=== PATIENT | female | born 1960 | race Caucasian/White ===

== ENCOUNTER 2016-08-22 10:52 | Emergency (ER) | payer OTHER ==
[~2016-08-22] VITALS: Wt 81.0 kg
[~2016-08-22 10:52] MED LIST: ASPI-664 PO; ATOR20TA38 PO; CEPH500C PO; CLOP75TA27 PO; FURO20TA3 PO; GEMF600T60 PO; INSU100C SC; LANT3I SC; LEVO75TA5 PO; NOL20 PO; SPIR25TA PO; TRAZ50TA18 PO; WARF6TAB35 PO
--- NOTE | 2016-08-22 11:22 | ERD ---
ER Documentation Chief Complaint Date/Time DATE: 08/22/16 TIME: 11:21 Chief Complaint RIGHT LITTLE TOE PAIN AND ITCHING FOR THE PAST 3 DAYS. HPI 56 y/o female presents to ED for itchiness, pain of the webspace between her right fourth and fifth toe. States that her skin issue has been there for about a week. Was prescribed Keflex by her primary care physician. Denies headache, loss of consciousness, dizziness, blurry vision, changes in vision, photophobia, facial pain, ear pain, throat pain, difficulty swallowing, neck pain, shoulder pain, chest pain, cough, hemoptysis, abdominal pain, back pain, loss of appetite, nausea, vomiting, hematochezia, diarrhea, constipation, urinary symptoms, bladder and bowel incontinences, extremity weakness, extremity tenderness, numbness or tingling sensation, trauma, difficulty walking , recent travel, recent exposure to illness, fever, chills. Allergy: NKA PMH: Diabetes, right breast cancer, thyroid problems. Family medical history: Denies Medications: Humalog insulin, Lantus insulin, gemfibrozil, clopidogrel, levothyroxine, trazodone Surgery: Bilateral lumpectomy Primary Social History: Denies smoking, use of alcohol, use of illegal drugs. ROS All systems reviewed and are negative except as per history of present illness. Medications Home Meds Active Scripts Ketoconazole* (Nizoral*) 2%-30 Gm Cream..g., 1 APPLIC TOP BID for 14 Days, TUB Prov:DARIUSZ LEE 08/22/16 Cephalexin* (Cephalexin*) 500 Mg Capsule, 500 MG PO Q8 for 5 Days, #21 CAP Prov:VALENTIN VILLAGOMEZ 03/01/16 Reported Medications Warfarin Sodium* (Warfarin Sodium*) 6 Mg Tablet, 2-8 MG PO DAILY, TAB CHECK BLOOD BEFORE TAKE MEDS 02/27/16 Atorvastatin Calcium* (Atorvastatin Calcium*) 20 Mg Tablet, 20 MG PO QHS, #30 TAB 02/27/16 Gemfibrozil* (Gemfibrozil*) 600 Mg Tablet, 600 MG PO BID, TAB 11/15/14 Aspirin* (Aspirin* EC) 81 Mg Tablet.dr, 81 MG PO DAILY, TAB 11/15/14 Tamoxifen Citrate* (Tamoxifen Citrate*) 20 Mg Tab, 20 MG PO BID, TAB 11/15/14 Spironolactone* (Aldactone*) 25 Mg Tablet, 25 MG PO DAILY, TAB 04/08/14 Clopidogrel Bisulfate (Clopidogrel) 75 Mg Tablet, 75 MG PO DAILY, TAB 04/08/14 Furosemide* (Furosemide*) 20 Mg Tablet, 20 MG PO DAILY, TAB 04/08/14 Insulin Glargine* (Lantus*) 100 Unit/Ml Soln, 60 UNIT SC HS, EA 04/08/14 Insulin Lispro (Humalog) 100 U/Ml Cartridge, 12 UNITS SC WITH MEALS, EA 04/08/14 Levothyroxine Sodium* (Levothyroxine Sodium*) 75 Mcg Tablet, 75 MCG PO AC BREAKFAST, TAB 04/08/14 Trazodone Hcl* (Desyrel*) 50 Mg Tablet, 50 MG PO DAILY 04/15/11 Allergies Allergies: Coded Allergies: No Known Allergies (Verified Allergy, Mild, 02/27/16) PMhx/Soc Diabetes, right breast cancer, thyroid History of Surgery: Yes (ANEESH,BSO) Anesthesia Reaction: No Hx Neurological Disorder: No Hx Respiratory Disorders: No Hx Cardiac Disorders: No Hx Psychiatric Problems: No Hx Miscellaneous Medical Probl: Yes (breast ca,UTI,GI bleed,BRCA mutation,PE heart attack,ovarian cyst) Hx Alcohol Use: No Hx Substance Use: No Hx Tobacco Use: No FmHx Denies Physical Exam Vitals Vital Signs Date Time Temp Pulse Resp B/P Pulse Ox O2 Delivery O2 Flow Rate FiO2 08/22/16 10:54 98.5 83 20 160/76 98 Physical Exam CONSTITUTIONAL: Well-appearing; well-nourished; in no apparent distress. HEAD: Normocephalic; atraumatic. EYES: Conjunctiva clear, sclera non-icteric, EOM intact. PERRL Ears: Hearing intact. EACs clear, TMs non-bulging, non-inflamed, translucent & mobile, ossicles normal appearance, No obstructions, no erythema, no discharges Nose: No obstructions. No polyps. No external lesions. Mucosa non-inflamed. No external lesions, septum and turbinates normal. No rhinorrhea. No discharges. Frontal sinus is non-tender to palpation. Maxillary sinus is non-tender to palpation. MOUTH: Moist mucous membranes, no lesion, no obstructions, no vesicles, no thrush, patent airway Throat: Uvula in midline. Right tonsil is +1 with no erythema, no exudate. Left tonsil is +1 with no erythema, no exudate. Tolerating secretions well. Good gag reflex. Patent airway. Neck: Supple, without lesions, bruits, or adenopathy. No mass. Thyroid non- enlarged and non-tender to palpation. CHEST: Symmetrical chest. Respirations even and not labored. No retractions noted. CARDIOVASCULAR: Normal S1, S2. RRR. No murmurs, gallops. RESPIRATORY: Normal chest excursion with respiration; breath sounds clear and equal bilaterally; no wheezes, rhonchi, or rales. Breathing even and unlabored. Speaking in clear, full, and complete sentences w/ ease. ABDOMEN: Normal bowel sounds normal. Soft, round, non-distended, non-guarding, no tenderness, no rebound, no organomegaly, no masses, no pulsating abdominal mass. No hernia. No peritoneal signs. : No CVA tenderness. BACK: Symmetrical shoulder. Spine is midline without deformity, tenderness. No evidence of trauma or deformity. PELVIS: Stable pelvis. No evidence of trauma or deformity. MUSCULOSKELETAL: Normal gait and station. No misalignment, asymmetry, crepitation, defects, tenderness, masses, effusions, decreased range of motion, instability, atrophy or abnormal strength or tone in the head, neck, spine, ribs , pelvis or extremities. No calf tenderness. NEUROVASCULAR: Distal pulses are present. Pedal pulse are present, equal, and normal. Capillary refills are < 2 seconds. NEUROLOGIC: Alert and oriented x4. Speaks full and clear sentences. Cranial Nerves II-XII normal. Sensation to pain, touch, and proprioception normal. Grossly unremarkable. No neurologic deficits. Romberg test is negative. PSYCHOLOGICAL: The patients mood and manner are appropriate. No hallucinations , delusions. Not SI. Not HI. Has the capacity to decide for self SKIN: Normal for age and ethnicity; warm; dry; good turgor; no apparent lesions or exudates. No rashes, hives, discoloration. Webspace between right fourth and fifth toe has flaky dry skin. Patient stated that she has been scratching it because of itchiness. No active bleeding. No drainage. No discharge. Procedures/MDM Examination: Unremarkable examination except webspace between right fourth and fifth toe has flaky dry skin. Patient stated that she has been scratching it because of itchiness. No active bleeding. No drainage. No discharge. Disease process, medical treatment was explained to the patient and family member. They verbalized understanding and agreed with the medical treatment, and follow-up care. Consultation: None Differential diagnosis: Cellulitis versus necrotizing fascitis versus eczema versus fungal infection Medical decision makin56 y/o female presents to ED for itchiness, pain of the webspace between her right fourth and fifth toe. States that her skin issue has been there for about a week. Was prescribed Keflex by her primary care physician. Medications prescribed are the following: Nizoral cream Patient and family member are made aware of the side effects and adverse reactions of the medications prescribed. Instructed on when to seek emergent and medical attention in case allergic/anaphylactic reactions or severe side effects and or adverse reactions to medications. Patient and family member verbalized understanding. Patient instructed Instructed to follow-up with his PCP in 24-48 hours. PCP to refer patient to [facility]. Instructed to Call 911 for chest pain, shortness of breath. Advised to come back here in ED as soon as possible for severity of symptoms which includes but not limited to: any new symptoms; shortness of breath/difficulty of breathing; cardiovascular changes; severe gastrointestinal symptoms; signs and symptoms of bleeding and or infection; signs of compartment syndrome/neurovascular changes; neurological changes/deficits. Patient and family member verbalized understanding. Upon discharge, patient is alert and oriented x 4, speaks full and clear sentences, denies pain, has no neurological deficits, has no neurovascular deficits, difficulty of breathing. Breathing even and unlabored. Lung sounds are clear to auscultation. Not in distress. Appears comfortable. Ambulatory with steady gait. Appears satisfied with care provided here in ED. Departure Condition: Good Additional Instructions: Follow-up with primary care physician in 24-48 hours. DARIUSZ LEE Aug 22, 2016 11:22
[2016-08-22] MEDS ORDERED: NIZ30CR2 TOP (11:24)
== END 2016-08-22 11:49 | disposition home or self-care (01) ==
LOC: FTE 10:52
DX: M79.674 Pain in right toe(s) (principal); E11.9 Type 2 diabetes mellitus without complications; Z79.4 Long term (current) use of insulin; Z85.3 Personal history of malignant neoplasm of breast; Z79.01 Long term (current) use of anticoagulants; Z79.82 Long term (current) use of aspirin
CPT/HCPCS: 99283

== ENCOUNTER 2017-02-17 00:22 | Inpatient (IN) | payer OTHER ==
[~2017-02-17] VITALS: Ht 167.6 cm; Wt 83.0 kg
[~2017-02-17 00:22] MED LIST changes: +NIZ30CR2 TOP
[2017-02-17] MEDS ORDERED: ONDANSETRON 4 MG INJ IV STA (02:35)
[2017-02-17] MEDS ORDERED: HYDROmorphONE 1 MG/ML SYG IV STA (02:35)
[2017-02-17 02:47] LABS: BASOPHILS % 0.3 % (0.0-2.0); EOSINOPHILS % 0.4 % (0.0-7.0); HEMATOCRIT 32.4 % (37.0-47.0); HEMOGLOBIN 11.1 g/dl (12.0-16.0); LYMPHOCYTES # 1.3 10^3/ul (0.8-2.9); LYMPHOCYTES % 19.4 % (15.0-51.0); MEAN CORPUSCULAR HEMOGLOBIN 31.4 pg (29.0-33.0); MEAN CORPUSCULAR HGB CONC 34.3 g/dl (32.0-37.0); MEAN CORPUSCULAR VOLUME 91.8 fl (82.0-101.0); MEAN PLATELET VOLUME 9.7 fl (7.4-10.4); MONOCYTE # 0.4 10^3/ul (0.3-0.9); MONOCYTES % 5.8 % (0.0-11.0); NEUTROPHILS % 73.1 % (39.0-77.0); PLATELET COUNT 199 10^3/UL (140-415); RED BLOOD COUNT 3.53 10^6/ul (4.20-5.40); WHITE BLOOD COUNT 6.9 10^3/ul (4.8-10.8)
[2017-02-17] MEDS ORDERED: ERTAPENEM SODIUM 1 GM in SOD CHLORIDE 0.9% 100 ML IVPB ONE (03:00)
[2017-02-17 04:18] VITALS: TEMP 98.3
[2017-02-17] MEDS ORDERED: SOD CHLORIDE 0.9% 1,000 ML IV SCH (04:20)
--- NOTE | 2017-02-17 04:20 | ERA ---
ER Documentation Chief Complaint Date/Time DATE: 02/17/17 TIME: 04:16 Chief Complaint c/o left arm swelling since am. Hx of lymphedema from breast CA. HPI This is a 56-year-old female with a history of breast cancer with left mastectomy who complains of off and on exacerbations of left upper arm swelling with cellulitis. She says she has been admitted multiple times in the hospital for this. She says that she started having swelling this morning and gradual worsening of erythema to the forearm and proximal arm on the left. No shortness of breath chest pain. She says she feels malaise but is not sure she has had a fever.. The arm is slightly painful. ROS All systems reviewed and are negative except as per history of present illness. Medications Home Meds Active Scripts Ketoconazole* (Nizoral*) 2%-30 Gm Cream..g., 1 APPLIC TOP BID for 14 Days, TUB Prov:DARIUSZ LEE Ya 08/22/16 Cephalexin* (Cephalexin*) 500 Mg Capsule, 500 MG PO Q8 for 5 Days, #21 CAP Prov:VALENTIN VILLAGOMEZ 03/01/16 Reported Medications Warfarin Sodium* (Warfarin Sodium*) 6 Mg Tablet, 2-8 MG PO DAILY, TAB CHECK BLOOD BEFORE TAKE MEDS 02/27/16 Atorvastatin Calcium* (Atorvastatin Calcium*) 20 Mg Tablet, 20 MG PO QHS, #30 TAB 02/27/16 Gemfibrozil* (Gemfibrozil*) 600 Mg Tablet, 600 MG PO BID, TAB 11/15/14 Aspirin* (Aspirin* EC) 81 Mg Tablet.dr, 81 MG PO DAILY, TAB 11/15/14 Tamoxifen Citrate* (Tamoxifen Citrate*) 20 Mg Tab, 20 MG PO BID, TAB 11/15/14 Spironolactone* (Aldactone*) 25 Mg Tablet, 25 MG PO DAILY, TAB 04/08/14 Clopidogrel Bisulfate (Clopidogrel) 75 Mg Tablet, 75 MG PO DAILY, TAB 04/08/14 Furosemide* (Furosemide*) 20 Mg Tablet, 20 MG PO DAILY, TAB 04/08/14 Insulin Glargine* (Lantus*) 100 Unit/Ml Soln, 60 UNIT SC HS, EA 04/08/14 Insulin Lispro (Humalog) 100 U/Ml Cartridge, 12 UNITS SC WITH MEALS, EA 04/08/14 Levothyroxine Sodium* (Levothyroxine Sodium*) 75 Mcg Tablet, 75 MCG PO AC BREAKFAST, TAB 04/08/14 Trazodone Hcl* (Desyrel*) 50 Mg Tablet, 50 MG PO DAILY 04/15/11 Allergies Allergies: Coded Allergies: No Known Allergies (Verified Allergy, Mild, 02/27/16) PMhx/Soc History of Surgery: Yes (ANEESH,BSO, bilat mastectectomy) Anesthesia Reaction: No Hx Neurological Disorder: No Hx Respiratory Disorders: No Hx Cardiac Disorders: No Hx Psychiatric Problems: No Hx Miscellaneous Medical Probl: Yes (breast ca,UTI,GI bleed,BRCA mutation,PE heart attack,ovarian cyst) Hx Alcohol Use: No Hx Substance Use: No Hx Tobacco Use: No Smoking Status: Never smoker FmHx Family History: No coronary disease Physical Exam Vitals Vital Signs Date Time Temp Pulse Resp B/P Pulse Ox O2 Delivery O2 Flow Rate FiO2 02/17/17 02:22 99.2 94 18 139/85 98 Room Air 02/17/17 00:25 98.1 95 18 166/79 94 Physical Exam Const: Well-developed, well-nourished Head: Atraumatic, normocephalic Eyes: Normal Conjunctiva, PERRLA, EOMI, normal sclera, no nystagmus ENT: Normal External Ears, Nose and Mouth, moist mucus membranes. Neck: Full range of motion. No meningismus, no lymphadenopathy. Resp: Clear to auscultation bilaterally, no wheezing, rhonchi, rales Cardio: Regular rate and rhythm, no murmurs, S1 S2 present Abd: Soft, non tender x 4, non distended. Normal bowel sounds, no guarding or rebound, no pulsitile abdominal masses or bruits Skin: No petechiae or rashes, no ecchymosis , no maculopapular rash, there is a circumferential rash consistent with cellulitis around the left forearm and humerus. Back: No midline or flank tenderness Ext: No cyanosis, +2 edema to the left upper extremity, FROM x 4, normal inspection, neurovascularly intact x 4 Neur: Awake and alert, STR 5/5 x 4, sensation intact x 4, no focal findings, cerebellum intact Psych: Normal Mood and Affect Result Diagram: 02/17/17 0215 Results 24 hrs Laboratory Tests Test 02/17/17 02:15 White Blood Count 6.910^3/ul Red Blood Count 3.5310^6/ul Hemoglobin 11.1g/dl Hematocrit 32.4% Mean Corpuscular Volume 91.8fl Mean Corpuscular Hemoglobin 31.4pg Mean Corpuscular Hemoglobin Concent 34.3g/dl Red Cell Distribution Width 14.0% Platelet Count 23774^3/UL Mean Platelet Volume 9.7fl Neutrophils % 73.1% Lymphocytes % 19.4% Monocytes % 5.8% Eosinophils % 0.4% Basophils % 0.3% Nucleated Red Blood Cells % 0.0/100WBC Neutrophils # 5.010^3/ul Lymphocytes # 1.310^3/ul Monocytes # 0.410^3/ul Eosinophils # 0.010^3/ul Basophils # 0.010^3/ul Nucleated Red Blood Cells # 0.010^3/ul Current Medications Medications (Trade) Dose Ordered Sig/Brett Route PRN Reason Start Time Stop Time Status Last Admin Dose Admin Hydromorphone HCl (Dilaudid) 1 mg ONCE STAT IV 02/17/17 02:35 02/17/17 02:37 DC 02/17/17 02:40 Ondansetron HCl 4 mg 4 mg ONCE STAT IV 02/17/17 02:35 02/17/17 02:37 DC 02/17/17 02:38 Ertapenem/Sodium Chloride (Invanz/NS) 100 ml @ 200 mls/hr ONCE ONCE IVPB 02/17/17 03:00 02/17/17 03:29 DC 02/17/17 02:50 Procedures/MDM The left upper extremity ultrasound does not show any signs of DVT. The patient's lab work is relatively unremarkable. We will need to admit the patient again for left upper extremity cellulitis patient is diabetic and is high risk for sepsis and further complications. I will admit to panel Departure Diagnosis: Primary Impression: Left arm cellulitis Condition: Stable JEANETTE KEANE DO Feb 17, 2017 04:19
[2017-02-17] MEDS ORDERED: ACETAMINOPHEN 325 MG TAB PO PRN ×2 (04:30)
[2017-02-17] MEDS ORDERED: ALBUTEROL/IPRATROPIUM (NEB) 3 ML AMP HHN PRN (04:30)
[2017-02-17] MEDS ORDERED: NACL 0.9% 3 ML SYG IV SCH (04:30)
[2017-02-17] MEDS ORDERED: ONDANSETRON 4 MG INJ IV PRN ×2 (04:30)
[2017-02-17] MEDS ORDERED: morphine 2 MG INJ IV PRN (04:30)
[2017-02-17 04:55] VITALS: PULSE 87
[2017-02-17 04:59] LABS: INR 0.99; PROTIME 13.1 Sec (12.2-14.2)
[2017-02-17 05:00] LABS: PARTIAL THROMBOPLASTIN TIME 27.6 Sec (25.0-35.0)
[2017-02-17] MEDS ORDERED: GLUCOSE GEL 15 GRAM TUBE PO PRN ×2 (05:00)
[2017-02-17] MEDS ORDERED: DEXTROSE 50% 50 ML SYRINGE IV PRN ×2 (05:00)
[2017-02-17] MEDS ORDERED: GLUCAGON 1 MG INJ IM PRN (05:00)
[2017-02-17] MEDS ORDERED: GLUCOSE GEL 15 GRAM TUBE BUCCAL PRN (05:00)
[2017-02-17 05:08] LABS: ALBUMIN 3.9 g/dl (3.3-4.9); ALBUMIN/GLOBULIN RATIO 1.18; BILIRUBIN,INDIRECT 0.1 mg/dl (0-1.1); BILIRUBIN,TOTAL 0.1 mg/dl (0.2-1.3); CALCIUM 9.4 mg/dl (8.4-10.2); CREATININE 0.56 mg/dl (0.44-1.00); POTASSIUM 3.7 mmol/L (3.5-5.1); TOTAL PROTEIN 7.2 g/dl (6.1-8.1)
[2017-02-17 05:15] VITALS: Ht 167.6 cm; Wt 83.0 kg
[2017-02-17 05:18] VITALS: BP 115/62; RESP 16
--- NOTE | 2017-02-17 05:51 | RADRPT ---
PROCEDURE: ULTRASOUND LEFT UPPER EXTREMITY VENOUS CLINICAL INDICATION: 56-year-old female with left upper extremity pain and swelling. TECHNIQUE: Multiple sonographic images of the left upper extremity deep venous system was obtained utilizing grayscale, color-flow, compressive sonography and doppler imaging with augmentation. The images were reviewed on a PACS workstation. COMPARISON: Left upper extremity venous ultrasound February 27, 2016. FINDINGS: There is normal compressibility and flow within the left internal jugular, subclavian, axillary, cep halic, brachial, basilic, radial and ulnar veins. IMPRESSION: No sonographic evidence for left upper extremity deep venous thrombosis. .Ralph Mc MD, MD Date Time Electronically viewed and signed by .Ralph Mc MD, MD on 02/17/2017 05:50 ./
[2017-02-17] MEDS: FUROSEMIDE 20 MG TAB PO SCH (05:53)
[2017-02-17] MEDS: LEVOTHYROXINE 75 MCG TAB PO SCH (06:58)
[2017-02-17 08:00] VITALS: BP 121/56; RESP 21
[2017-02-17] MEDS: INSULIN ASPART [NOVOLOG] 3 ML PEN SC SCH ×7 (08:00→20:42)
[2017-02-17] MEDS ORDERED: INSULIN LISPRO 12 UNIT SC SCH (08:00)
[2017-02-17] MEDS ORDERED: INSULIN ASPART [NOVOLOG] 3 ML PEN SC SCH (08:00)
[2017-02-17] MEDS ORDERED: NON-FORMULARY/PATIENT OWN MED (Tamoxifen Citrate* 20 MG) PO SCH (09:00)
[2017-02-17] MEDS: SPIRONOLACTONE 25 MG TAB PO SCH (09:18)
[2017-02-17] MEDS: traZODone 50 MG TAB PO SCH (09:18)
[2017-02-17] MEDS: TAMOXIFEN 10 MG TAB PO SCH ×2 (09:18→20:50)
[2017-02-17] MEDS: CLOPIDOGREL 75 MG TAB PO SCH (09:18)
[2017-02-17] MEDS: ASPIRIN (EC) 81 MG TAB PO SCH (09:19)
[2017-02-17] MEDS: ENOXAPARIN 40 MG/0.4 ML SYG SC SCH (09:19)
[2017-02-17] MEDS: GEMFIBROZIL 600 MG TAB PO SCH ×2 (09:23→20:53)
--- NOTE | 2017-02-17 09:38 | HP ---
Date/Time of Note Date/Time of Note DATE: 02/17/17 TIME: 09:32 Assessment/Plan VTE Prophylaxis VTE Prophylaxis Intervention: heparin Lines/Catheters IV Catheter Type (from Nrsg): Saline Lock Assessment/Plan Assessment/Plan 1. Recurrent left upper extremity cellulitis: -Continue antibiotic. Will follow up on culture results 2. History of bilateral breast cancer, status post bilateral mastectomy: Continue hormonal therapy 3. Diabetes: Insulin while in-house 4. History of CHF with systolic dysfunction with EF of 45%: No acute exacerbation. Continue home medication 5. History of NV: Continue home medication. HPI/ROS Admit Date/Time Admit Date/Time Feb 17, 2017 at 04:21 Hx of Present Illness This is a 56-year-old female with a history of bilateral breast cancer, status post bilateral mastectomy with left axillary lymph node dissection, NV, diabetes , CHF with systolic dysfunction with EF of 45%, depression and recurrent left upper extremity cellulitis and swelling. Patient presented to the ER because her left upper extremity is more swollen than usual, is erythematous and also warm to touch. She also reported subjective fever. The last time patient was admitted for similar symptom was here at [facility] a year ago. When she presented to the ER she was afebrile and her white count was within normal limits. Left upper extremity Doppler ultrasound was negative for DVT. PMH/Family/Social Social History Smoking Status: Never smoker Exam/Review of Systems Vital Signs Vitals Vital Signs Date Time Temp Pulse Resp B/P Pulse Ox O2 Delivery O2 Flow Rate FiO2 02/17/17 08:00 98.7 85 21 121/56 95 02/17/17 04:55 Room Air Exam Constitutional: alert, oriented, well developed Head: atraumatic, normocephalic Eyes: EOMI, PERRL Respiratory: clear to auscultation, normal air movement Cardiovascular: nl pulses, regular rate and rhythm Extremities: other (Left upper extremity swelling and erythema, which is also warm to touch) Labs Result Diagram: 02/17/1721402/17/17214 Medications Medications Current Medications Ondansetron HCl (Zofran Inj) 4 mg Q6H PRN IV NAUSEA AND/OR VOMITING; Start at 04:30 Acetaminophen (Tylenol Tab) 650 mg Q6H PRN PO PAIN LEVEL 1-3 OR FEVER; Start at 04:30 Morphine Sulfate (morphine) 2 mg Q4H PRN IV SEVERE PAIN LEVEL 7-10; Start 02/17 at 04:30 Enoxaparin Sodium (Lovenox) 40 mg DAILY SC Last administered on 02/17/17 09:19 ; Admin Dose 40 MG; Start 02/17/17 at 09:00 Diagnostic Test (Pha) (Accu-Chek) 1 ea 02 XX ; Start 02/18/17 at 02:00 Aspirin (Halfprin) 81 mg DAILY PO Last administered on 02/17/17 09:19; Admin Dose 81 MG; Start 02/17/17 at 09:00 Atorvastatin Calcium (Lipitor) 20 mg QHS PO ; Start 02/17/17 at 21:00 Clopidogrel Bisulfate (plaVIX) 75 mg DAILY PO Last administered on 02/17/17 09 :18; Admin Dose 75 MG; Start 02/17/17 at 09:00 Furosemide (Lasix) 20 mg DAILY@06 PO Last administered on 02/17/17 05:53; Admin Dose 20 MG; Start 02/17/17 at 06:00 Gemfibrozil (Lopid) 600 mg BID PO Last administered on 02/17/17 09:23; Admin Dose 600 MG; Start 02/17/17 at 09:00 Insulin Glargine (Lantus) 60 unit HS SC ; Start 02/17/17 at 21:00 Spironolactone (Aldactone) 25 mg DAILY PO Last administered on 02/17/17 09:18 ; Admin Dose 25 MG; Start 02/17/17 at 09:00 Trazodone HCl (Desyrel) 50 mg DAILY PO Last administered on 02/17/17 09:18; Admin Dose 50 MG; Start 02/17/17 at 09:00 Miscellaneous Information 1 ea NOTE XX ; Start 02/17/17 at 05:00 Glucose (Glutose) 15 gm Q15M PRN PO DECREASED GLUCOSE; Start 02/17/17 at 05:00 Glucose (Glutose) 22.5 gm Q15M PRN PO DECREASED GLUCOSE; Start 02/17/17 at 05: 00 Dextrose (D50w Syringe) 25 ml Q15M PRN IV DECREASED GLUCOSE; Start 02/17/17 at 05:00 Dextrose (D50w Syringe) 50 ml Q15M PRN IV DECREASED GLUCOSE; Start 02/17/17 at 05:00 Glucagon (Glucagen) 1 mg Q15M PRN IM DECREASED GLUCOSE; Start 02/17/17 at 05:00 Glucose (Glutose) 15 gm Q15M PRN BUCCAL DECREASED GLUCOSE; Start 02/17/17 at 05 :00 Tamoxifen Citrate (Nolvadex) 20 mg BID PO Last administered on 02/17/17t 09:18 ; Admin Dose 20 MG; Start 02/17/17 at 09:00 DIDI ALMAGUER MD Feb 17, 2017 09:38
[2017-02-17] MEDS ORDERED: HEPARIN 5,000 UNIT/0.5 ML VIAL SC SCH (10:00)
[2017-02-17 14:00] VITALS: BP 136/65; RESP 18
--- NOTE | 2017-02-17 14:08 | QN ---
Documentation Comment Continue abx. monitor for 24 hours likely DC tomorrow with oral abx. ARPAN SANCHEZ Feb 17, 2017 14:08
[2017-02-17] MEDS ORDERED: VANCOMYCIN 1 GM (PMX) 250 ML IVPB SCH (14:30)
[2017-02-17] MEDS ORDERED: VANCOMYCIN IV PER PHARMACY XX SCH (14:30)
[2017-02-17] MEDS: PIPER-TAZO 3.375 GM IV (PMX) 100 ML IVPB SCH ×2 (15:22→21:03)
[2017-02-17] MEDS ORDERED: VANCOMYCIN 1.5 GM in SOD CHLORIDE 0.9% 250 ML IVPB SCH (15:30)
[2017-02-17 20:26] VITALS: BP 135/65; RESP 16
[2017-02-17] MEDS ORDERED: INSULIN GLARGINE [LANtus] 3 ML PEN SC SCH (21:00)
[2017-02-17] MEDS ORDERED: ATORVASTATIN 20 MG TAB PO SCH (21:00)
[2017-02-18] MEDS ORDERED: ACCU-CHEK XX SCH (02:00)
[2017-02-18 02:50] VITALS: BP 126/60; RESP 16
[2017-02-18] MEDS ORDERED: VANCOMYCIN 1 GM (PMX) 250 ML IVPB SCH (03:00)
[2017-02-18] MEDS ORDERED: VANCOMYCIN 1.5 GM in SOD CHLORIDE 0.9% 250 ML IVPB SCH (04:00)
[2017-02-18] MEDS: FUROSEMIDE 20 MG TAB PO SCH (05:13)
[2017-02-18 06:00] LABS: BASOPHILS % 0.5 % (0.0-2.0); EOSINOPHILS # 0.2 10^3/ul (0.0-0.5); EOSINOPHILS % 2.5 % (0.0-7.0); HEMATOCRIT 32.9 % (37.0-47.0); HEMOGLOBIN 10.9 g/dl (12.0-16.0); LYMPHOCYTES # 1.9 10^3/ul (0.8-2.9); LYMPHOCYTES % 29.1 % (15.0-51.0); MEAN CORPUSCULAR HEMOGLOBIN 30.4 pg (29.0-33.0); MEAN CORPUSCULAR HGB CONC 33.1 g/dl (32.0-37.0); MEAN CORPUSCULAR VOLUME 91.6 fl (82.0-101.0); MEAN PLATELET VOLUME 9.6 fl (7.4-10.4); MONOCYTE # 0.5 10^3/ul (0.3-0.9); MONOCYTES % 7.2 % (0.0-11.0); NEUTROPHIL # 3.8 10^3/ul (1.6-7.5); NEUTROPHILS % 59.9 % (39.0-77.0); PLATELET COUNT 194 10^3/UL (140-415); RED BLOOD COUNT 3.59 10^6/ul (4.20-5.40); RED CELL DISTRIBUTION WIDTH 13.9 % (11.5-14.5); WHITE BLOOD COUNT 6.4 10^3/ul (4.8-10.8)
[2017-02-18 06:47] LABS: ALBUMIN 3.4 g/dl (3.3-4.9); ALBUMIN/GLOBULIN RATIO 1.09; BILIRUBIN,INDIRECT 0.1 mg/dl (0-1.1); BILIRUBIN,TOTAL 0.1 mg/dl (0.2-1.3); CHOL/HDL RATIO 5.2 RATIO; CREATININE 0.45 mg/dl (0.44-1.00); POTASSIUM 3.6 mmol/L (3.5-5.1); TOTAL PROTEIN 6.5 g/dl (6.1-8.1)
[2017-02-18] MEDS: PIPER-TAZO 3.375 GM IV (PMX) 100 ML IVPB SCH ×2 (06:54→14:05)
[2017-02-18 07:30] VITALS: BP 136/62; RESP 16
[2017-02-18] MEDS: SPIRONOLACTONE 25 MG TAB PO SCH (08:30)
[2017-02-18] MEDS: CLOPIDOGREL 75 MG TAB PO SCH (08:30)
[2017-02-18] MEDS: GEMFIBROZIL 600 MG TAB PO SCH (08:30)
[2017-02-18] MEDS: traZODone 50 MG TAB PO SCH (08:30)
[2017-02-18] MEDS: LEVOTHYROXINE 75 MCG TAB PO SCH (08:31)
[2017-02-18] MEDS: ASPIRIN (EC) 81 MG TAB PO SCH (08:31)
[2017-02-18] MEDS: INSULIN ASPART [NOVOLOG] 3 ML PEN SC SCH ×4 (08:32→12:07)
[2017-02-18] MEDS: ENOXAPARIN 40 MG/0.4 ML SYG SC SCH (08:33)
[2017-02-18] MEDS: TAMOXIFEN 10 MG TAB PO SCH (08:38)
[2017-02-18 14:10] VITALS: BP 131/70; RESP 18
--- NOTE | 2017-02-18 15:06 | DS ---
Date/Time of Note Date/Time of Note DATE: 02/18/17 TIME: 15:03 Discharge Summary Admission/Discharge Info Admit Date/Time Feb 17, 2017 at 04:21 Discharge Date/Time Discharge Diagnosis 1. Recurrent left upper extremity cellulitis, lymphedema from previous surgery , stable, keflex 2. History of bilateral breast cancer, status post bilateral mastectomy: Continue hormonal therapy 3. Diabetes: Insulin while in-house 4. History of CHF with systolic dysfunction with EF of 45%: No acute exacerbation. Continue home medication 5. History of AR: Continue home medication. Patient Condition: Stable Hx of Present Illness This is a 56-year-old female with a history of bilateral breast cancer, status post bilateral mastectomy with left axillary lymph node dissection, AR, diabetes , CHF with systolic dysfunction with EF of 45%, depression and recurrent left upper extremity cellulitis and swelling. Patient presented to the ER because her left upper extremity is more swollen than usual, is erythematous and also warm to touch. She also reported subjective fever. The last time patient was admitted for similar symptom was here at [facility] a year ago. When she presented to the ER she was afebrile and her white count was within normal limits. Left upper extremity Doppler ultrasound was negative for DVT. Hospital Course Patient got vancomycin and zosyn, redness and swelling is improved on left upper extremity. Patient is afebrile. She is discharged with kefelx and follow up with PCP. Home Meds Active Scripts Ketoconazole* (Nizoral*) 2%-30 Gm Cream..g., 1 APPLIC TOP BID for 14 Days, TUB Prov:DARIUSZ LEE 08/22/16 Cephalexin* (Cephalexin*) 500 Mg Capsule, 500 MG PO Q8 for 5 Days, #21 CAP Prov:VALENTIN VILLAGOMEZ 03/01/16 Reported Medications Warfarin Sodium* (Warfarin Sodium*) 6 Mg Tablet, 2-8 MG PO DAILY, TAB CHECK BLOOD BEFORE TAKE MEDS 02/27/16 Atorvastatin Calcium* (Atorvastatin Calcium*) 20 Mg Tablet, 20 MG PO QHS, #30 TAB 02/27/16 Gemfibrozil* (Gemfibrozil*) 600 Mg Tablet, 600 MG PO BID, TAB 11/15/14 Aspirin* (Aspirin* EC) 81 Mg Tablet.dr, 81 MG PO DAILY, TAB 11/15/14 Tamoxifen Citrate* (Tamoxifen Citrate*) 20 Mg Tab, 20 MG PO BID, TAB 11/15/14 Spironolactone* (Aldactone*) 25 Mg Tablet, 25 MG PO DAILY, TAB 04/08/14 Clopidogrel Bisulfate (Clopidogrel) 75 Mg Tablet, 75 MG PO DAILY, TAB 04/08/14 Furosemide* (Furosemide*) 20 Mg Tablet, 20 MG PO DAILY, TAB 04/08/14 Insulin Glargine* (Lantus*) 100 Unit/Ml Soln, 60 UNIT SC HS, EA 04/08/14 Insulin Lispro (Humalog) 100 U/Ml Cartridge, 12 UNITS SC WITH MEALS, EA 04/08/14 Levothyroxine Sodium* (Levothyroxine Sodium*) 75 Mcg Tablet, 75 MCG PO AC BREAKFAST, TAB 04/08/14 Trazodone Hcl* (Desyrel*) 50 Mg Tablet, 50 MG PO DAILY 04/15/11 Follow-up Plan PCP in 1 week Primary Care Provider Not On Staff Doctor Pending Labs Laboratory Tests Test 02/17/17 17:32 02/17/17 20:39 02/18/17 02:42 02/18/17 04:47 Bedside Glucose 199mg/dL (70-220) 191mg/dL (70-220) 122mg/dL (70-220) White Blood Count 6.410^3/ul (4.8-10.8) Red Blood Count 3.5910^6/ul (4.20-5.40) Hemoglobin 10.9g/dl (12.0-16.0) Hematocrit 32.9% (37.0-47.0) Mean Corpuscular Volume 91.6fl (82.0-101.0) Mean Corpuscular Hemoglobin 30.4pg (29.0-33.0) Mean Corpuscular Hemoglobin Concent 33.1g/dl (32.0-37.0) Red Cell Distribution Width 13.9% (11.5-14.5) Platelet Count 88042^3/UL (140-415) Mean Platelet Volume 9.6fl (7.4-10.4) Neutrophils % 59.9% (39.0-77.0) Lymphocytes % 29.1% (15.0-51.0) Monocytes % 7.2% (0.0-11.0) Eosinophils % 2.5% (0.0-7.0) Basophils % 0.5% (0.0-2.0) Nucleated Red Blood Cells % 0.0/100WBC (0.0-0.0) Neutrophils # 3.810^3/ul (1.6-7.5) Lymphocytes # 1.910^3/ul (0.8-2.9) Monocytes # 0.510^3/ul (0.3-0.9) Eosinophils # 0.210^3/ul (0.0-0.5) Basophils # 0.010^3/ul (0.0-0.1) Nucleated Red Blood Cells # 0.010^3/ul (0.0-0.0) Sodium Level 141mmol/L (135-144) Potassium Level 3.6mmol/L (3.5-5.1) Chloride Level 100mmol/L (97-110) Carbon Dioxide Level 29mmol/L (21-31) Anion Gap 16 (8-16) Blood Urea Nitrogen 12mg/dl (7-20) Creatinine 0.45mg/dl (0.44-1.00) Glucose Level 111mg/dl (70-220) Hemoglobin A1c 11.3% (0-5.9) Calcium Level 9.0mg/dl (8.4-10.2) Total Bilirubin 0.1mg/dl (0.2-1.3) Direct Bilirubin 0.00mg/dl (0.00-0.20) Indirect Bilirubin 0.1mg/dl (0-1.1) Aspartate Amino Transf (AST/SGOT) 45IU/L (15-46) Alanine Aminotransferase (ALT/SGPT) 34IU/L (13-69) Alkaline Phosphatase 80IU/L (42-121) Total Protein 6.5g/dl (6.1-8.1) Albumin 3.4g/dl (3.3-4.9) Globulin 3.10g/dl (1.3-3.2) Albumin/Globulin Ratio 1.09 Triglycerides Level 259mg/dl (0-149) Cholesterol Level 205mg/dl (100-200) LDL Cholesterol, Calculated 114mg/dl HDL Cholesterol 39mg/dl (37-92) Cholesterol/HDL Ratio 5.2RATIO Test 7/24/17 08:01 02/18/17 11:42 Bedside Glucose 142mg/dL (70-220) 152mg/dL (70-220) TIMO CASTANEDA MD Feb 18, 2017 15:06
[2017-02-18] MEDS ORDERED: CEPH500C PO (15:07)
[2017-02-18] MEDS ORDERED: TAMOXIFEN 10 MG TAB PO SCH (16:30)
== END 2017-02-18 17:07 | disposition home or self-care (01) | DRG 603 ==
LOC: E/R 00:22 → PP2 04:21
PROVIDERS: ADMIT Internal Medicine; ATTEND Internal Medicine
DX: L03.114 Cellulitis of left upper limb (principal); I11.0 Hypertensive heart disease with heart failure; I50.22 Chronic systolic (congestive) heart failure; I89.0 Lymphedema, not elsewhere classified; I25.2 Old myocardial infarction; E11.9 Type 2 diabetes mellitus without complications; F32.9 Major depressive disorder, single episode, unspecified; Z79.4 Long term (current) use of insulin; Z85.3 Personal history of malignant neoplasm of breast; Z90.13 Acquired absence of bilateral breasts and nipples
CPT/HCPCS: 80053; 80061; 82962; 83036; 85025; 85610; 85730; 87040; 93971; 96374; 96375; J1170; J1335; J1650; J1815; J2270; J2405; J2543; J3370; J7030; J7050

== ENCOUNTER 2017-09-07 13:14 | Emergency (ER) | END 2017-09-07 15:40 | disposition home or self-care (01) ==

== ENCOUNTER 2018-11-22 19:54 | Emergency (ER) | payer OTHER ==
[~2018-11-22] VITALS: Ht 157.5 cm; Wt 79.8 kg
[~2018-11-22 19:54] MED LIST changes: -ASPI-664 PO; +ASPI-817 PO; +FLUC150T PO; -GEMF600T60 PO; +GEMF600T8 PO; +NITR-58 PO; +TRA50 PO; -TRAZ50TA18 PO; -WARF6TAB35 PO; +WARF6TAB48 PO
[2018-11-22 19:57] VITALS: Ht 157.5 cm; Wt 79.8 kg
[2018-11-23] MEDS ORDERED: SOD CHLORIDE 0.9% 500 ML IV STA (00:03)
--- NOTE | 2018-11-23 00:33 | ERD ---
ER Documentation Chief Complaint Chief Complaint Fatigue HPI This is a 58-year-old female with a past medical history of hypertension, hyperlipidemia, coronary artery disease complicated by previous MA status post catheterization and stenting, CHF, diabetes, chronic anemia, hypothyroidism, breast cancer status post mastectomy and hysterectomy currently on chemotherapy, who is presenting with 5 days of feeling generally unwell, fatigue and mid back pain. The patient had recently traveled to [facility] when her symptoms started. She was evaluated in [facility] and told that she was anemic. Her son had her come back to the [place] for evaluation. The patient does not report any chest pain or trouble breathing or pleuritic pain. The patient does endorse a chronic dry nonproductive cough. She does not endorse lightheadedness or dizziness. She does not endorse nausea or vomiting. She does not endorse any diaphoresis. She does not endorse feeling sick. She denies any fever or chills. The patient has had no headache or vision changes. The patient does not endorse neck or back pain. The patient denies abdominal pain. The patient denies changes to bowel movements or urination. The patient has had no focal deficits. The patient has had no weakness or numbness or tingling to the face or extremities. ROS All systems reviewed and are negative except as per history of present illness. Medications Home Meds Active Scripts Fluconazole* (Diflucan*) 150 Mg Tablet, 150 MG PO ONCE for 1 Day, #1 TAB Prov:HERMINIA ELENA PA-C 09/07/17 Nitrofurantoin Monohyd Macrocr* (Macrobid*) 100 Mg Capsr, 100 MG PO BID for 7 Days, CAP Prov:HERMINIA ELENA PA-C 09/07/17 Cephalexin* (Cephalexin*) 500 Mg Capsule, 500 MG PO Q6 for 7 Days, #28 CAP Prov:TIMO CASTANEDA MD 02/18/17 Ketoconazole* (Nizoral*) 2%-30 Gm Cream..g., 1 APPLIC TOP BID for 14 Days, TUB Prov:DARIUSZ LEE 08/22/16 Cephalexin* (Cephalexin*) 500 Mg Capsule, 500 MG PO Q8 for 5 Days, #21 CAP Prov:VALENTIN VILLAGOMEZ 03/01/16 Reported Medications Warfarin Sodium* (Warfarin Sodium*) 6 Mg Tablet, 2-8 MG PO DAILY, TAB CHECK BLOOD BEFORE TAKE MEDS 02/27/16 Atorvastatin Calcium* (Atorvastatin Calcium*) 20 Mg Tablet, 20 MG PO QHS, #30 TAB 02/27/16 Gemfibrozil* (Gemfibrozil*) 600 Mg Tablet, 600 MG PO BID, TAB 11/15/14 Aspirin* (Aspirin* EC) 81 Mg Tablet.dr, 81 MG PO DAILY, TAB 11/15/14 Tamoxifen Citrate* (Tamoxifen Citrate*) 20 Mg Tab, 20 MG PO BID, TAB 11/15/14 Spironolactone* (Aldactone*) 25 Mg Tablet, 25 MG PO DAILY, TAB 04/08/14 Clopidogrel Bisulfate (Clopidogrel) 75 Mg Tablet, 75 MG PO DAILY, TAB 04/08/14 Furosemide* (Furosemide*) 20 Mg Tablet, 20 MG PO DAILY, TAB 04/08/14 Insulin Glargine* (Lantus*) 100 Unit/Ml Soln, 60 UNIT SC HS, EA 04/08/14 Insulin Lispro (Humalog) 100 U/Ml Cartridge, 12 UNITS SC WITH MEALS, EA 04/08/14 Levothyroxine Sodium* (Levothyroxine Sodium*) 75 Mcg Tablet, 75 MCG PO AC BREAKFAST, TAB 04/08/14 Trazodone Hcl* (Desyrel*) 50 Mg Tablet, 50 MG PO DAILY 04/15/11 Allergies Allergies: Coded Allergies: No Known Allergies (Verified Allergy, Mild, 02/27/16) PMhx/Soc History of Surgery: Yes (Bilateral mastectomy - 2007, Lymphectomy - Total hysterectomy -unsure of yr) Anesthesia Reaction: No Hx Neurological Disorder: No Hx Respiratory Disorders: Yes (Pulmonary Embolism) Hx Cardiac Disorders: Yes (Heart Attack) Hx Psychiatric Problems: No Hx Miscellaneous Medical Probl: No Hx Alcohol Use: No Hx Substance Use: No Hx Tobacco Use: No Smoking Status: Never smoker FmHx Family History: diabetes Physical Exam Vitals Vital Signs Date Temp Pulse Resp B/P (MAP) Pulse Ox O2 O2 Flow FiO2 Time Delivery Rate 11/22/18 98.6 79 20 131/76 96 Room Air 23:56 (94) 11/22/18 Nasal 2 23:56 Cannula 11/22/18 96.9 80 20 140/73 98 19:57 (95) Physical Exam Const: No apparent distress, well-developed, well-nourished Head: Normocephalic, Atraumatic Eyes: Normal Conjunctiva. Extraocular movements intact. Pupils equal, round and reactive to light ENT: Normal External Ears, Nose and Mouth. Neck: Full range of motion. No meningismus. Resp: Clear to auscultation bilaterally, No wheezes, rales or rhonchi Cardio: Regular rate and rhythm. No murmurs, rubs or gallops Abd: Soft, non tender, non distended. Normal bowel sounds Skin: No petechiae or rashes Back: No midline tenderness. No CVA tenderness Ext: No cyanosis, or edema Neur: Awake and alert, oriented 4. Cranial nerves intact. No facial droop. Normal strength, sensation and coordination. Psych: Normal Mood and Affect Result Diagram: 11/23/181911/23/1819 Results 24 hrs Laboratory Tests Test 11/23/18 00:19 11/23/18 00:20 11/23/18 00:25 Prothrombin Time 12.1 Sec Prothrombin Time Ratio 0.9 INR International 0.89 Normalized Ratio White Blood Count 6.3 10^3/ul Red Blood Count 4.05 10^6/ul Hemoglobin 12.0 g/dl Hematocrit 35.0 % Mean Corpuscular Volume 86.4 fl Mean Corpuscular Hemoglobin 29.6 pg Mean Corpuscular 34.3 g/dl Hemoglobin Concent Red Cell Distribution Width 13.0 % Platelet Count 113 10^3/UL Mean Platelet Volume 11.7 fl Immature Granulocytes % 1.300 % Neutrophils % % Segmented Neutrophils % (Manual) 41 % Band Neutrophils % (Manual) 3 % Lymphocytes % % Lymphocytes % (Manual) 49 % Reactive Lymphocytes % (Manual) 1 % Monocytes % % Monocytes % (Manual) 3 % Eosinophils % % Basophils % % Metamyelocytes % (manual) 1 % Myelocytes % (Manual) 1 % Plasma Cells % (manual) 1 % Nucleated Red Blood Cells % 1 % Immature Granulocytes # 0.080 10^3/ul Neutrophils # 10^3/ul Neutrophils # (Manual) 2.6 10^3/ul Band Neutrophils # 0.1 10^3/ul Lymphocytes (Manual) 3.0 10^3/ul Lymphocytes # 10^3/ul Reactive Lymphocytes # 0.0 10^3/ul Monocytes # 10^3/ul Monocytes # (Manual) 0.1 10^3/ul Eosinophils # 10^3/ul Basophils # 10^3/ul Metamyelocytes # 0.0 10^3/ul Myelocytes # 0.0 10^3/ul Plasma Cells # (manual) 0.0 10^3/ul Nucleated Red Blood Cells # 10^3/ul Platelet Estimate DECREASED Giant Platelets 4 % Polychromasia 2+ Poikilocytosis 3+ Sodium Level 138 mmol/L Potassium Level 3.9 mmol/L Chloride Level 99 mmol/L Carbon Dioxide Level 29 mmol/L Anion Gap 10 Blood Urea Nitrogen 21 mg/dl Creatinine 0.40 mg/dl Est Glomerular Filtrat > 60 mL/min Rate mL/min Glucose Level 379 mg/dl Calcium Level 9.9 mg/dl Troponin I < 0.012 ng/ml Thyroid Stimulating Hormone (TSH) 14.900 MIU/L Free Thyroxine 1.47 ng/dl Current Medications Medications Dose Sig/Brett Start Time Status Last (Trade) Ordered Route PRN Stop Time Admin Dose Reason Admin Sodium 500 ml @ Q1H STAT 11/23/18 DC 11/23/18 Chloride 500 mls/hr IV 00:03 00:31 11/23/18 01:02 Sodium 1,000 ml @ Q1H ONCE 11/23/18 11/23/18 Chloride 1,000 mls/hr IV 01:30 01:36 11/23/18 02:29 Procedures/MDM MDM The patient's presentation warrants further investigation. Previous medical records, if available, were reviewed. LABS The patient's laboratory testing was obtained and reviewed. No emergent treatment was required unless described below. CBC: No E/o systemic infection or severe anemia. Mild thrombocytopenia, not emergent. Chemistry: No E/o severe acidosis or alkalosis or renal failure. Hyperglycemia without diabetic ketoacidosis. Elevated BUN, concerning for dehydration. PT/INR: No E/o significant coagulopathy Troponin: No E/o acute ischemia TFTs: E/o hypothyroidism, but her free T4 is within normal limits. EKG EKG read by me: Rate/Rhythm: Regular rate and rhythm at a rate of 78 bpm Intervals: Normal [place]: Left axis deviation Impression: Poor R wave progression but no evidence of acute ischemia or arrhythmia IMAGING Imaging and Radiology interpretation reviewed. CXR 1V Interpreted by me Soft Tissue: No acute abnormalities Bones: No acute abnormalities Mediastinum/Cardiac Silhouette: Mild cardiomegaly. Otherwise unremarkable. No widened mediastinum. Lungs: No acute abnormalities. Normal pulmonary vasculature. No pneumothorax. No pulmonary edema. Clear costal diaphragmatic angles. No pleural effusions. No opacity or consolidations concerning for pneumonia. TREATMENT/DISPOSITION The patient presents for fatigue. The patient has a reassuring physical exam. The patient is not clinically orthostatic. That said, the patient does have evidence of dehydration. The patient was given IV fluids in the emergency department. Additionally, the patient does have hyperglycemia. There is no evidence of DKA, but the patient will benefit from IV fluid resuscitation. The patient is not dizzy. I have decreased suspicion for vertigo. The patient has no signs of emergent or symptomatic anemia. The patient does not have any emergent electrolyte or metabolic emergencies. The patient does have known hypothyroidism. While her TSH is elevated, the patient's free T4 is within normal limits. This may be related to her fatigue today, but I do not suspect an emergency, and I do feel that this may be further managed in an outpatient setting. The patient is not toxic appearing. I have decreased suspicion for an infectious etiology of symptoms. The patient's EKG and troponin are reassuring. I have low suspicion for acute coronary syndrome. I do not see evidence of any emergent cardiac arrhythmia, which includes but is not limited to heart block, Brugada syndrome or WPW. The patient has no heart murmurs or rales. There is no evidence of cardiomegaly on exam or chest xray. I have low suspicion for hypertrophic cardiomyopathy. I do not see evidence of CHF. The patient does not endorse any chest or pleuritic pain. The history is negative for bleeding or clotting disorders. The patient has not been involved in any recent prolonged trips or surgeries or hospitalizations. The patient has no calf tenderness or swelling. I have decreased suspicion for PE as the etiology of symptoms. The patient has no focal deficits. The neurologic exam is reassuring. I have decreased suspicion for cerebral ischemia. There was no trauma or injury. There is no personal or family history of cerebral aneurysm. I have decreased suspicion for SAH or other ICH. I have low suspicion for temporal arteritis, cavernous venous thrombosis, subdural hematoma, epidural hematoma, meningitis. DISCHARGE Upon reevaluation of the patient, symptoms have improved. No emergent diagnoses were identified. At this time, I feel that the patient stable for discharge. The patient was instructed to follow-up with a primary care physician in 1-3 days. The patient will be given strict precautions with which to return to the emergency department. Prescriptions: None The patient's blood pressure was elevated at greater than 120/80 while in the emergency department. The patient was otherwise stable with no evidence of hypertensive urgency or emergency. The patient does not require admission for blood pressure control. I have discussed with the patient the risks of hypertension. I have instructed the patient to return to the ER for any new or worsening symptoms including chest pain, shortness of breath, headache, blurred vision, confusion, nausea, vomiting or LOC. I have advised the patient to follow up with the primary care physician for outpatient monitoring and treatment for hypertension in 1-3 days. Disclaimer: Inadvertent spelling and grammatical errors are likely due to EHR/dictation software use and do not reflect on the overall quality of patient care. Note that the electronic time recorded on this note does not necessarily reflect the actual time of the patient encounter. Departure Diagnosis: Primary Impression: Fatigue Fatigue type: unspecified Qualified Codes: R53.83 - Other fatigue Additional Impressions: Dehydration Elevated BUN Hyperglycemia Thrombocytopenia Hypothyroidism Hypothyroidism type: unspecified Qualified Codes: E03.9 - Hypothyroidism, unspecified Condition: Stable Patient Instructions: Hyperglycemia (High Blood Sugar), Hypothyroidism, Oncology: Managing Fatigue, Thrombocytopenia, Weakness, Unk Cause Additional Instructions: Thank you for for coming to [facility] for your care today. Please ask your nurse or provider if you have questions about your care today and do not leave until all your questions have been answered. Please use any medications given as directed and follow-up with your doctor (or the doctor you were referred to) in the next 1-3 days. If you do not have a primary care doctor you may follow up at the [facility] or [facility] (listed below). You may also use motrin and tylenol as needed for fever and/or pain unless instructed otherwise by your provider or nurse. Indications for more urgent follow-up have been discussed, but you may return to the Emergency Department at ANY time for any worrisome or worsening symptoms. If you have abdominal pain, please know that no test or exam you received is perfect and you should follow up within 8 hours for continued pain. If you had any imaging studies today, such as an X-Ray or CT Scan, these studies will be reviewed later by a radiologist. You will be called if there are important findings that were not identified today, so make sure the contact information you provided at registration is correct. If you received any narcotic pain control medicine today, such as Vicodin, Morphine or Dilaudid, your coordination and judgment may be affected for a number of hours. Please do not drive or operate heavy machinery, and you may want someone to assist you at home. If you were given a prescription for narcotic medication, be aware that it is very addictive- use sparingly and only if necessary. PLEASE SEEK FURTHER EVALUATION AND MANAGEMENT AT YOUR DOCTORS OFFICE WITHIN THE NEXT 1-3 DAYS. IT IS YOUR RESPONSIBILITY TO MAKE AN APPOINTMENT FOR FOLOW-UP CARE. IF YOU HAVE A PRIMARY DOCTOR, PLEASE CALL THEIR OFFICE TO SCHEDULE AN APPOINTMENT FOR FOLLOW UP. IF YOU DO NOT HAVE A PRIMARY DOCTOR YOU CAN CALL OUR PHYSICIAN REFERRAL HOTLINE AT IF YOU CAN NOT AFFORD TO SEE A PHYSICIAN YOU CAN CHOSE FROM THE FOLLOWING FORMERLY [facility] CLINICS: [facility] [address] [facility] [address] [facility] [facility] [address] [facility] [address] [facility]. [facility] [address] [facility] [facility]. [address] SHILPA RAUSCH MD Nov 23, 2018 00:33
[2018-11-23] MEDS ORDERED: SOD CHLORIDE 0.9% 1,000 ML IV ONE (01:30)
[2018-11-23 03:21] VITALS: BP 140/76; PULSE 85; RESP 16
== END 2018-11-23 03:21 | disposition home or self-care (01) ==
LOC: E/R 19:54
DX: R53.83 Other fatigue (principal); E86.0 Dehydration; D69.6 Thrombocytopenia, unspecified; E03.9 Hypothyroidism, unspecified; E11.65 Type 2 diabetes mellitus with hyperglycemia; I10 Essential (primary) hypertension; I25.10 Atherosclerotic heart disease of native coronary artery without angina pectoris; I50.9 Heart failure, unspecified; Z85.3 Personal history of malignant neoplasm of breast; Z79.01 Long term (current) use of anticoagulants; Z79.82 Long term (current) use of aspirin; Z79.4 Long term (current) use of insulin
CPT/HCPCS: 36415; 71045; 80048; 84439; 84443; 84484; 85025; 85610; 86850; 86900; 86901; 93005; J7030; J7040; Z7502

== ENCOUNTER 2018-11-27 13:16 | Emergency (ER) | payer OTHER ==
[~2018-11-27] VITALS: Ht 167.6 cm; Wt 82.3 kg
[2018-11-27 13:29] VITALS: BP 132/64; PULSE 86; RESP 20; Ht 167.6 cm; Wt 82.3 kg
--- NOTE | 2018-11-27 15:27 | ERD ---
ER Documentation Chief Complaint Chief Complaint Complains of a generalized skin rash x 3 days HPI 58-year-old female with past medical history of CAD, [place] status post stent, breast cancer status post bilateral mastectomy year 2007 who presents with complaint of rash along area of chest. States been having nonpainful area of rash along the chest wall for approximately 3 days now. Feels an itchy feeling on the inside. Has used multiple unnamed creams including fluocinoide cream without improvement in symptoms. Has history of shingles treated approximately 3 years ago with a similar rash. She otherwise denies fevers, chills, shortness of breath, dyspnea, nausea, vomiting, diarrhea, abdominal pain or any other concerning symptoms. Denies allergies to any medications denies using any new skin products. ROS All systems reviewed and are negative except as per history of present illness. Medications Home Meds Active Scripts Acetaminophen* (Tylophen*) 500 Mg Capsule, 1 CAP PO Q6H PRN for PAIN AND OR ELEVATED TEMP, #20 CAP Prov:MARIA ESTHER KAYE-C 11/27/18 Tramadol HCl (Tramadol HCl) 50 Mg Tablet, 50 MG PO Q6, #20 TAB Prov:MARIA ESTHER KAYE-C 11/27/18 Acyclovir* (Zovirax*) 800 Mg Tablet, 800 MG PO 5 TIMES DAILY for 7 Days, TAB Prov:MARIA ESTHER KAYE-C 11/27/18 Fluconazole* (Diflucan*) 150 Mg Tablet, 150 MG PO ONCE for 1 Day, #1 TAB Prov:HERMINIA ELENA-C 09/07/17 Nitrofurantoin Monohyd Macrocr* (Macrobid*) 100 Mg Capsr, 100 MG PO BID for 7 Days, CAP Prov:HERMINIA ELENA-C 09/07/17 Cephalexin* (Cephalexin*) 500 Mg Capsule, 500 MG PO Q6 for 7 Days, #28 CAP Prov:TIMO CASTANEDA MD 02/18/17 Ketoconazole* (Nizoral*) 2%-30 Gm Cream..g., 1 APPLIC TOP BID for 14 Days, TUB Prov:DARIUSZ LEE 08/22/16 Cephalexin* (Cephalexin*) 500 Mg Capsule, 500 MG PO Q8 for 5 Days, #21 CAP Prov:VALENTIN VILLAGOMEZ 03/01/16 Reported Medications Warfarin Sodium* (Warfarin Sodium*) 6 Mg Tablet, 2-8 MG PO DAILY, TAB CHECK BLOOD BEFORE TAKE MEDS 02/27/16 Atorvastatin Calcium* (Atorvastatin Calcium*) 20 Mg Tablet, 20 MG PO QHS, #30 TAB 02/27/16 Gemfibrozil* (Gemfibrozil*) 600 Mg Tablet, 600 MG PO BID, TAB 11/15/14 Aspirin* (Aspirin* EC) 81 Mg Tablet.dr, 81 MG PO DAILY, TAB 11/15/14 Tamoxifen Citrate* (Tamoxifen Citrate*) 20 Mg Tab, 20 MG PO BID, TAB 11/15/14 Spironolactone* (Aldactone*) 25 Mg Tablet, 25 MG PO DAILY, TAB 04/08/14 Clopidogrel Bisulfate (Clopidogrel) 75 Mg Tablet, 75 MG PO DAILY, TAB 04/08/14 Furosemide* (Furosemide*) 20 Mg Tablet, 20 MG PO DAILY, TAB 04/08/14 Insulin Glargine* (Lantus*) 100 Unit/Ml Soln, 60 UNIT SC HS, EA 04/08/14 Insulin Lispro (Humalog) 100 U/Ml Cartridge, 12 UNITS SC WITH MEALS, EA 04/08/14 Levothyroxine Sodium* (Levothyroxine Sodium*) 75 Mcg Tablet, 75 MCG PO AC BREAKFAST, TAB 04/08/14 Trazodone Hcl* (Desyrel*) 50 Mg Tablet, 50 MG PO DAILY 04/15/11 Allergies Allergies: Coded Allergies: No Known Allergies (Verified Allergy, Mild, 11/27/18) PMhx/Soc History of Surgery: Yes (Bilateral mastectomy - 2007, Lymphectomy - Total hysterectomy -unsure of yr) Anesthesia Reaction: No Hx Neurological Disorder: No Hx Respiratory Disorders: Yes (Pulmonary Embolism) Hx Cardiac Disorders: Yes (Heart Attack) Hx Psychiatric Problems: No Hx Miscellaneous Medical Probl: No Hx Alcohol Use: No Hx Substance Use: No Hx Tobacco Use: No Smoking Status: Never smoker FmHx Family History: diabetes, coronary disease, other Physical Exam Vitals Vital Signs Date Temp Pulse Resp B/P (MAP) Pulse Ox O2 O2 Flow FiO2 Time Delivery Rate 11/27/18 97.5 86 20 132/64 93 13:29 (86) Physical Exam Const: No acute distress Head: Atraumatic Eyes: Normal Conjunctiva ENT: Normal External Ears, Nose and Mouth. Neck: Full range of motion. No meningismus. Resp: Clear to auscultation bilaterally Cardio: Regular rate and rhythm, no murmurs Abd: Soft, non tender, non distended. Normal bowel sounds Skin: Bilateral mastectomy, healed scar bilateral breast, area of rash to mid chest, small cluster of non tender vesicles, no lesions, lacerations, open skin, mild erythema and areas of excoriation, nontender Back: No midline or flank tenderness Ext: No cyanosis, or edema Neur: Awake and alert Psych: Normal Mood and Affect Procedures/MDM 58-year-old female with rash likely secondary to herpes zoster/shingles infection. She has no evidence of systemic disseminated infection, she is afebrile with normal triage vital signs. I have low suspicion for the rheumatologic process requiring further emergent work-up or treatment. She has prior history of shingles. Given patient is status post bilateral mastectomy she likely may unable to perceive pain at site. No evidence of superinfection of lesions. Discharged with a course of acyclovir. Her renal is function normal. She is advised to follow-up with PMD. DISPOSITION PLAN: We discussed follow up with the patient's primary care doctor within 24 to 48 hours. Patient counseled regarding my diagnostic impression and care plan. Prior to discharge all questions answered. Pt agrees with treatment plan and understands strict return precautions. Precautionary instructions provided i ncluding instructions to return to the ER if not improving or for any worsening or changing symptoms or concerns. Disclaimer: Inadvertent spelling and grammatical errors are likely due to EHR/dictation software use and do not reflect on the overall quality of patient care. Also, please note that the electronic time recorded on this note does not necessarily reflect the actual time of the patient encounter. Departure Condition: Stable MARIA ESTHER KAYE PA-C November 27, 2018 15:26
[2018-11-27] MEDS ORDERED: ACET500C5 PO (15:49)
[2018-11-27] MEDS ORDERED: ACYC800T5 PO (15:49)
[2018-11-27] MEDS ORDERED: TRAM50TA2 PO (15:49)
== END 2018-11-27 15:59 | disposition home or self-care (01) ==
LOC: FTE 13:16
DX: R21 Rash and other nonspecific skin eruption (principal); I25.10 Atherosclerotic heart disease of native coronary artery without angina pectoris; I25.2 Old myocardial infarction; Z79.82 Long term (current) use of aspirin; Z79.01 Long term (current) use of anticoagulants; Z79.4 Long term (current) use of insulin; Z85.3 Personal history of malignant neoplasm of breast; Z98.61 Coronary angioplasty status
CPT/HCPCS: 99283

== ENCOUNTER → 2019-03-20 | Emergency (ER) | payer OTHER ==
[~2019-03-20] VITALS: Ht 160 cm; Wt 83.2 kg
[~2019-03-20] MED LIST changes: +ACET500C5 PO; +ACYC800T5 PO; +CEPH-443 PO; +HYDR-4011 PO; +HYDROCODONE/APAP (5/325) TAB PO ONE; +IBUP-1542 PO; +IBUP-1561 PO; +IBUPROFEN 200 MG TAB PO ONE; +TRAM50TA2 PO
[2019-03-20 21:50] VITALS: Ht 160 cm; Wt 83.2 kg
[2019-03-21 00:25] VITALS: BP 141/67; PULSE 74; RESP 18
== END | disposition home or self-care (01) ==
LOC: FTE 21:45
DX: S60.011A Contusion of right thumb without damage to nail, initial encounter (principal); E11.9 Type 2 diabetes mellitus without complications; I25.2 Old myocardial infarction; S99.911A Unspecified injury of right ankle, initial encounter; W01.0XXA Fall on same level from slipping, tripping and stumbling without subsequent striking against object, initial encounter; Y92.9 Unspecified place or not applicable; Z79.01 Long term (current) use of anticoagulants; Z79.82 Long term (current) use of aspirin; Z79.4 Long term (current) use of insulin; Z85.3 Personal history of malignant neoplasm of breast
CPT/HCPCS: 73140; 73610; Z7502; Z7610

== ENCOUNTER 2019-04-02 22:03 | Emergency (ER) | payer OTHER ==
[~2019-04-02] VITALS: Ht 165.1 cm; Wt 83.9 kg
[~2019-04-02 22:03] MED LIST changes: -HYDROCODONE/APAP (5/325) TAB PO ONE; -IBUPROFEN 200 MG TAB PO ONE
[2019-04-02 22:06] VITALS: Ht 165.1 cm; Wt 83.9 kg
[2019-04-02 23:43] VITALS: BP 127/71; PULSE 84; RESP 16
== END 2019-04-02 23:43 | disposition home or self-care (01) ==
LOC: FTE 22:03
DX: L03.011 Cellulitis of right finger (principal); L02.511 Cutaneous abscess of right hand
CPT/HCPCS: 99283